=== PATIENT | female | born 1970 | race Hispanic/Latino ===

== ENCOUNTER 2018-12-25 12:39 | Emergency (ER) | payer SELFPAY ==
[~2018-12-25] VITALS: Ht 157.5 cm; Wt 125.2 kg
[2018-12-25] MEDS ORDERED: CLINDAMYCIN PHOS 900MG/ 50ML 50 ML IV ONE (13:00)
[2018-12-25] MEDS ORDERED: CEFTRIAXONE SOD 1 GM/NS 50 ML 50 ML IV ONE (13:30)
== END 2018-12-25 14:11 | disposition home or self-care (01) ==
LOC: FSED 12:39
DX: M25.471 Effusion, right ankle (principal); L03.115 Cellulitis of right lower limb; R21 Rash and other nonspecific skin eruption
CPT/HCPCS: 80053; 85025; 87040; 99284; J0696